=== PATIENT | female | born 1985 | race Caucasian/White ===

== ENCOUNTER 2018-05-29 06:36 | Emergency (ER) | payer MEDICAID, SELFPAY ==
[2018-05-29 06:39] VITALS: BP 123/76; PULSE 90; RESP 16; TEMP 37.1; O2SAT 96
--- NOTE | 2018-05-29 07:11 | ED.GENADUL_ITS ---
Discharge Plan Disposition Patient Disposition: HOME Condition: Good Discharge Details Chief Complaint: DentalOral Clinical Impression: Abscess, dental Primary Care Provider: Lala Jackson ED Provider: Mendel Leos [place] Meds and New Rx's Prescriptions: New clindamycin HCl [Cleocin HCl] 150 mg capsule 450 mg PO TID Qty: 60 RF: 0 ibuprofen 600 mg tablet 600 mg PO QID PRN (Reason: pain) Qty: 20 RF: 0 Continued methadone 10 MG/1 ML concentrate 40 mg PO BID RF: 0 dexmethylphenidate [Focalin XR] 20 MG capsule,ER biphasic 50-50 20 mg PO BID RF: 0 bupropion HCl [Wellbutrin XL] 150 MG tablet extended release 24 hr 150 mg PO DAILY RF: 0 diltiazem HCl 240 MG capsule,ext.rel 24h degradable 240 mg PO DAILY Qty: 90 RF: 3 gabapentin 300 MG capsule 300 mg PO BID Qty: 180 RF: 3 buprenorphine-naloxone [Suboxone] 8-2 mg Film 16 film Sublingual DAILY RF: 0 Discharge Instructions Instructions: Dental Abscess (ED) Additional Instructions: Take antibiotic as prescribed. Ibuprofen for pain. May use the benzocaine as directed over the weekend. Follow-up with a dentist this coming week. Return to ED for spiking fevers, increasing pain and swelling of the face, difficulty breathing, inability to swallow. Medical Decision Making Patient with dental abscess extending from the upper gingival region above the left incisor. Discussed needle aspiration with patient. She is agreeable. test is negative. She is given ibuprofen for pain. Benzocaine applied to the abscess area with Q-tip. Needle aspiration of abscess performed with 23-gauge needle. Purulent material returned. More purulent material drained from puncture site. Patient will be started on clindamycin 450 mg p.o. 3 times daily for 7 days. She will need follow-up with dentistry. Return to ED for spiking fevers, increasing pain and swelling to the face. Difficulty breathing. Inability to swallow. HPI General Mode of arrival: ambulatory . Date/Time Provider Initiated Documentation: 05/29/18 07:07 . Limitations to Documentation: no limitations . Information obtained by: patient . HPI Narrative: Patient presents with complaint of dental pain. She has had pain for about 4 days. It has got progressively worse. It is just above the upper incisors. She has very poor dentition with multiple fractured and decayed teeth. She has a little bit of upper lip swelling. She has no difficulty breathing. She has had no fever that she is aware of. Related Data Home Medications Medication Instructions Recorded Confirmed methadone 40 mg PO BID ml 11/04/16 05/29/18 dexmethylphenidate [Focalin XR] 20 mg PO BID 12/15/16 05/29/18 bupropion HCl [Wellbutrin XL] 150 mg PO DAILY tab-cap 01/29/17 05/29/18 diltiazem HCl 240 mg PO DAILY #90 tab-cap 10/12/17 05/29/18 gabapentin 300 mg PO BID #180 tab-cap 10/12/17 05/29/18 buprenorphine-naloxone [Suboxone] 16 film SUBLINGUAL DAILY 05/29/18 05/29/18 clindamycin HCl [Cleocin HCl] 450 mg PO TID #60 cap 05/29/18 ibuprofen 600 mg PO QID PRN #20 tab 05/29/18 Previous Rx's Medication Instructions Recorded diltiazem HCl 240 mg PO DAILY #90 tab-cap 10/12/17 gabapentin 300 mg PO BID #180 tab-cap 10/12/17 clindamycin HCl [Cleocin HCl] 450 mg PO TID #60 cap 05/29/18 ibuprofen 600 mg PO QID PRN #20 tab 05/29/18 Allergies Allergy/AdvReac Type Severity Reaction Status Date / Time No Known Drug Allergies Allergy none Unverified 05/29/18 06:44 General Stated Complaint: DentalOral PRETTY: 4 Review of Systems Review of Systems As documented in HPI otherwise negative as below. Const: no fever, chills, weakness Resp: no cough, SOB, pleuritic pain CV: no CP, diaphoresis, edema, syncope GI: no abdominal pain, nausea, vomiting, diarrhea Neuro: no headache, numbness, focal weakness, confusion [facility] Medical History Methadone maintenance therapy patient (Chronic) SVT (supraventricular tachycardia) (Chronic) Family History Mother No problems noted. Father Diabetes Social History Smoking/Tobacco Use Status: Current every day Alcohol Intake: never Drug use: Current Sobriety Do you feel safe in your relationship?: Yes Exam Const General: cooperative, comfortable and no acute distress Orientation: alert and oriented x3 HENMT Head: normocephalic and atraumatic Face and sinus: no erythema, no fluctuance and tenderness (Upper lip just under the nose. Tender with some swelling present) Teeth and gingiva: gingiva abnormal (Abscess above the upper left incisor with swelling) and poor dentition Throat: posterior oropharynx normal Neck Neck: no lymphadenopathy, trachea midline and supple Course Vital Signs Temperature 98.8 F 05/29/18 06:39 Pulse 90 05/29/18 06:39 Respiratory Rate 16 05/29/18 06:39 Blood Pressure 123/76 05/29/18 06:39 Pulse Oximetry 96 05/29/18 06:39 Temperature 98.8 F 05/29/18 06:39 Temperature Source Temporal Artery Scan 05/29/18 06:39 Pulse 90 05/29/18 06:39 Respiratory Rate 16 05/29/18 06:39 Respiratory Effort 05/29/18 06:39 Blood Pressure 123/76 05/29/18 06:39 Pulse Oximetry 96 05/29/18 06:39 Pain Level 8 05/29/18 06:43 Procedures Abscess I/D Site: Other (dental/gingival) Local Anesthetic: Other Anesthetic (benzocaine) Technique: Needle Aspiration Packing used?: None Complications: Pain
[2018-05-29] MEDS: Ibuprofen 800 MG TAB PO (07:16)
[2018-05-29] MEDS: Benzocaine 20% Gel 30 GM JAR MM (07:17)
[2018-05-29] MEDS: Clindamycin 150 MG CAP 450 MG PO (07:17)
== END 2018-05-29 07:37 | disposition home or self-care (01) ==
PROVIDERS: Emergency Provider Emergency Medicine; PCP Nurse Practitioner
DX: K04.7 Periapical abscess without sinus (principal)
CPT/HCPCS: 10160; 81025

== ENCOUNTER 2021-10-09 20:49 | Outpatient (REF) | payer MEDICAID, SELFPAY ==
[2021-10-11 13:59] LABS: Chlamydia Result Negative (Negative); GC Result Negative (Negative)
== END 2021-10-09 20:50 | disposition home or self-care (01) ==
LOC: LBN 20:49
PROVIDERS: Visit Provider Physician Assistant Medical
DX: Z11.3 Encounter for screening for infections with a predominantly sexual mode of transmission (principal); N89.8 Other specified noninflammatory disorders of vagina
CPT/HCPCS: 87491; 87591; 87480; 87510; 87660

== ENCOUNTER 2022-08-16 17:10 | Outpatient (REF) | payer MEDICAID, SELFPAY ==
[2022-08-18 09:31] LABS: Hepatitis B Surface Ag Negative (Negative)
[2022-08-18 10:06] LABS: HIV-1/2 Ag & Ab Screen Negative (Negative)
[2022-08-18 10:18] LABS: Hepatitis C Ab w Rflx HCV PCR Negative (Negative)
[2022-08-18 11:44] LABS: Syphilis Serology (RPR) Negative (Negative)
== END 2022-08-16 17:11 | disposition home or self-care (01) ==
LOC: LBN 17:10
PROVIDERS: Visit Provider Physician Assistant Medical
DX: R21 Rash and other nonspecific skin eruption (principal); Z11.3 Encounter for screening for infections with a predominantly sexual mode of transmission; Z11.59 Encounter for screening for other viral diseases; Z11.4 Encounter for screening for human immunodeficiency virus [HIV]
CPT/HCPCS: 86803; 87340; 87389; 86592

== ENCOUNTER 2022-08-19 12:06 | Outpatient (REF) | payer MEDICAID, SELFPAY ==
[2022-08-19 13:25] LABS: Bilirubin Small (Negative); Blood Trace-intact (Negative); Clarity Sl Cloudy (Clear); Glucose Negative (Negative); Ketones Negative (Negative); Leukocyte Esterase Moderate (Negative); Nitrite Negative (Negative); Specific Gravity >= 1.030 (1.005-1.025); Urobilinogen 0.2 mg/dL (Up to 0.2); pH 5.5 (5-8)
[2022-08-19 14:17] LABS: *AMPHETAMINES SCREEN URINE Negative (Negative); *BARBITURATES SCREEN URINE Negative (Negative); *BENZODIAZEPINES SCREEN URINE Negative (Negative); Cannabinoids THC Positive (Negative); Cocaine Screen,Urine Negative (Negative); METHADONE URINE SCREEN Negative (Negative); OPIATES URINE SCREEN Negative (Negative)
[2022-08-19 14:21] LABS: Bacteria Moderate HPF (Negative); Crystals Moderate Amorphous HPF (Negative); Epithelial Cells Many HPF (Negative); Mucus Moderate (Negative); Other Cells Negative (Negative); WBC >50 HPF (0-5)
[2022-08-19 14:23] LABS: C & S Indicated? No/Sq. Contamination
[2022-08-19 14:24] LABS: Tricyclic Antidepressants Negative (Negative)
== END 2022-08-19 12:07 | disposition home or self-care (01) ==
LOC: LBN 12:06
PROVIDERS: Visit Provider Counselor Addiction (Substance Use Disorder)
DX: F12.20 Cannabis dependence, uncomplicated (principal); F14.21 Cocaine dependence, in remission
CPT/HCPCS: 80307; 81003; 81015